=== PATIENT | male | born 1970 | race Caucasian/White ===

== ENCOUNTER 2024-02-28 10:59 | Day surgery (SDC) | payer OTHER ==
[2024-02-24 12:25] VITALS: BMI 26.0
[2024-02-28] MEDS: LACTATED RINGERS 1,000 ML IV SCH (11:44)
[2024-02-28 12:09] LABS: Glucose,Whole Blood 83 mg/dL (70-110)
[2024-02-28] MEDS ORDERED: PROPOFOL 10 MG/ML 20 ML VIAL IV ONE (12:45)
--- NOTE | 2024-02-28 12:50 | P.GSHP ---
History of Present Illness H&P Date: 02/28/24 Chief Complaint: positive colon guard this a 53-year-old male had recent positive colon guard test. Patient presents today for colonoscopy. Past Medical History Past Medical History: Chest Pain / Angina, Diabetes Mellitus, Hyperlipidemia, Hypertension Additional Past Medical History / Comment(s): chest pain-anxiety related, chronic back pain, pre-diabetic History of Any Multi-Drug Resistant Organisms: None Reported Past Surgical History: Ear Surgery, Orthopedic Surgery, Tonsillectomy Additional Past Surgical History / Comment(s): titanium brittani in left arm Past Anesthesia/Blood Transfusion Reactions: Previous Problems w/ Anesthesia Additional Past Anesthesia/Blood Transfusion Reaction / Comment(s): wakes up very aggressive Past Psychological History: Anxiety Smoking Status: Former smoker, Vaper Past Alcohol Use History: None Reported Additional Past Alcohol Use History / Comment(s): past alcohol abuse hx-has not drank since 2016 Past Drug Use History: Marijuana Additional Drug Use History / Comment(s): occasional marijuana-instructed to refrain from use within 24 hrs of procedure Medications and Allergies Home Medications Medication Instructions Recorded Confirmed Type Atorvastatin [Lipitor] 40 mg PO DAILY 02/24/24 02/28/24 History Gabapentin 300 mg PO TID 02/24/24 02/28/24 History hydroCHLOROthiazide 12.5 mg PO DAILY 02/24/24 02/28/24 History traZODone HCL [Desyrel] 50 mg PO HS 02/24/24 02/28/24 History Allergies Allergy/AdvReac Type Severity Reaction Status Date / Time No Known Allergies Allergy Verified 02/28/24 11:49 Surgical - Exam Vital Signs Temp Pulse Resp BP Pulse Ox 97.2 F L 61 16 147/84 99 02/28/24 12:00 02/28/24 12:00 02/28/24 12:00 02/28/24 12:00 02/28/24 12:00 - General well developed, well nourished, no distress - Eyes PERRL - ENT normal pinna - Neck no masses - Respiratory normal expansion - Cardiovascular Rhythm: regular - Abdomen Abdomen: soft, non tender Assessment and Plan Assessment: positive colon guard test. We'll perform colonoscopy.
[2024-02-28 12:51] VITALS: RESP 16; TEMP 97.2
--- NOTE | 2024-02-28 13:03 | P.OP ---
Date of Procedure: 02/28/24 Preoperative Diagnosis: positive colon guard Postoperative Diagnosis: transverse colon polyp Procedure(s) Performed: colonoscopy Anesthesia: MAC Surgeon: Isaac Medrano Pathology: other (transverse colon polyp) Condition: stable Disposition: PACU Description of Procedure: the patient's placed on the endoscopy table in the lateral position. Sreceived IV sedation. Digital rectal exam was performed. This revealed no ebonized. Flexible colonoscope was then placed patient anus passed throughout the entire colon. The ileocecal valve sutures. The right colon appeared normal. In the proximal transverse colon there is a small polyp seen. And removed with the snare. The remainder the colon appeared normal. In the descending; there is moderate diverticular changes. Scope summer back the rectum this appeared normal. Scope withdrawn for patient.
[2024-02-28 13:37] VITALS: BP 124/76; PULSE 47
== END 2024-02-28 13:50 | disposition home or self-care (01) ==
LOC: ORWHC2ENDO 10:59
PROVIDERS: ATTEND Surgery
DX: D12.3 Benign neoplasm of transverse colon (principal); I10 Essential (primary) hypertension; G89.29 Other chronic pain; F41.9 Anxiety disorder, unspecified; E78.5 Hyperlipidemia, unspecified; E11.9 Type 2 diabetes mellitus without complications; Z87.891 Personal history of nicotine dependence
CPT/HCPCS: 88305; 45385; J2704